=== PATIENT | male | born 1980 | race Hispanic/Latino ===

== ENCOUNTER 2017-05-13 21:36 | Emergency (ER) | payer SELFPAY ==
[2017-05-13 21:46] VITALS: BP 117/62; PULSE 69; RESP 16; TEMP 98.1; O2SAT 100
--- NOTE | 2017-05-13 21:57 | ED PDOC ---
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 Patient reports that he was given a cream to use but that it has not alleviated his symptoms. He states his pain is worse when he is wearing his construction boots. Past Medical History Reviewed: Historical Data, Nursing Documentation, Vital Signs Vital Signs: Last Vital Signs Temp 98.1 F 05/13/17 21:44 Pulse 69 05/13/17 21:44 Resp 16 05/13/17 21:44 BP 117/62 05/13/17 21:44 Pulse Ox 100 05/13/17 21:44 - Medical History PMH: No Chronic Diseases - Family History Family History: States: Unknown Family Hx - Home Medications Home Medications: Ambulatory Orders Medication Instructions Recorded Miconazole Nitrate [Lotrimin AF] 133 gm TP BID #1 spray 05/13/17 - Allergies Allergies/Adverse Reactions: Allergies Allergy/AdvReac Type Severity Reaction Status Date / Time No Known Allergies Allergy Verified 05/13/17 21:43 Review of Systems Musculoskeletal: Positive for: Foot Pain (b/l foot pain) Physical Exam - Reviewed Nursing Documentation Reviewed: Yes Vital Signs Reviewed: Yes - Physical Exam Appears: Positive for: Non-toxic, No Acute Distress Head Exam: Positive for: ATRAUMATIC, NORMOCEPHALIC Skin: Positive for: Normal Color, Warm Pulses-Dorsalis Pedis (L): 2+ Pulses-Dorsalis Pedis (R): 2+ Extremity: Positive for: Normal ROM, Other (Plantar aspects of bilateral feet are wet and erythematous. Foul-smelling.). Negative for: Swelling Neurologic/Psych: Positive for: Alert, Oriented. Negative for: Motor/Sensory Deficits - ECG O2 Sat by Pulse Oximetry: 100 (RA) Pulse Ox Interpretation: Normal Medical Decision Making Medical Decision Making: Impression: Florenciodch Foot Plan: * Will give patient Rx for cream. Advised patient to keep feet clean and away from any wet environments for prolonged periods of time. Patient is stable for discharge home. Scribe Attestation: Documented by Krystal Millan, acting as a scribe for Amairani Martinez PA-C. Provider Scribe Attestation: All medical record entries made by the Scribe were at my direction and personally dictated by me. I have reviewed the chart and agree that the record accurately reflects my personal performance of the history, physical exam, medical decision making, and the department course for this patient. I have also personally directed, reviewed, and agree with the discharge instructions and disposition. Disposition - Clinical Impression Clinical Impression: Trench foot - Patient ED Disposition Is Patient to be Admitted: No - Disposition Disposition: Routine/Home Disposition Time: 23:36 Condition: STABLE Prescriptions: Miconazole Nitrate [Lotrimin AF] 133 gm TP BID #1 spray Instructions: Tinea Pedis (ED) Forms: [employer] (Italian) - POSherin Present On Arrival: None
== END 2017-05-13 23:55 | disposition home or self-care (01) ==
LOC: H.ER 21:36
DX: T69.029A Immersion foot, unspecified foot, initial encounter (principal)